=== PATIENT | female | born 1950 | race Caucasian/White ===

== ENCOUNTER → 2016-03-17 | Outpatient (CLI) | payer BC, MEDICARE ==
--- NOTE | 2016-03-17 09:22 | MR ---
EXAMINATION TYPE: MR cervical spine wo con DATE OF EXAM: 03/17/2016 8:36 AM COMPARISON: None HISTORY: 65-year-old female with cervical radiculopathy, neck and arm pain. TECHNIQUE: Multiplanar, multisequence images of the cervical spine were acquired. FINDINGS: No craniocervical junction abnormality, predental space widening, or prevertebral soft tissue swellin g. There is normal alignment of the cervical spine. There is a fatty matrix hemangioma within the C4 vertebral body. There is mild heterogeneity of marro w signal without suspicious bone marrow replacement. Moderate disc/endplate degenerative change with disc desiccation, disc space narrowing, and disc oste ophyte complex formation, especially from C5 through C7 levels. Multilevel ligamentum flavum thickeni ng is present as well as uncovertebral joint and facet degenerative change. At C2-C3, there is facet degenerative change without significant spinal canal or neuroforaminal steno sis. At C3-C4, there is facet degenerative change causing mild narrowing of the right neuroforamen. Disc o steophyte complex and ligamentum flavum thickening contribute to mild narrowing of the spinal canal w ithout significant cord abutment or cord flattening. At C4-C5, there is a broad-based right paracentral disc osteophyte complex with uncovertebral joint a nd facet degenerative change. Additional ligamentum flavum thickening. This causes mild narrowing of the spinal canal with slight abutment of the right ventral cord. At C5-C6, there is broad-based lobulated disc osteophyte complex with contiguous uncovertebral joint arthropathy. Additional facet degenerative change contributing to mild spinal canal stenosis with abu tment and slight flattening of the ventral cord. There is also mild to moderate left and mild right n euroforaminal stenosis. At C6/C7, there is broad-based left paracentral disc osteophyte complex with uncovertebral joint and facet degenerative change. This abuts and slightly flattens the ventral cord and causes a mild narrow ing of the spinal canal. No significant neuroforaminal stenosis. At C7/T1, there is ligamentum flavum thickening and facet degenerative change with minimal narrowing of the left neuroforamen. There is minimal impression on the thecal sac without significant spinal ca nal stenosis. No T2 cord signal abnormality. No prevertebral or paravertebral soft tissue abnormality seen. IMPRESSION: 1. Moderate disc/endplate degenerative change particularly from C5 through C7 levels along with multi level facet and uncovertebral joint arthropathy and ligamentum flavum thickening. 2. Changes result in mild spinal canal stenoses from C3 through C7 levels. At some levels, disc osteo phyte complex abuts and slightly flattens the ventral cord. However, there is no austin cord compressi on or canal compromise. 3. Variable mild neuroforaminal stenoses as outlined above, mild to moderate on the left at C5-C6.
== END | disposition home or self-care (01) ==
LOC: RADMRIMAIN 07:20
PROVIDERS: ATTEND Psychiatry & Neurology Neurology
DX: M48.02 Spinal stenosis, cervical region (principal); M99.71 Connective tissue and disc stenosis of intervertebral foramina of cervical region; M47.12 Other spondylosis with myelopathy, cervical region; M46.92 Unspecified inflammatory spondylopathy, cervical region
CPT/HCPCS: 72141

== ENCOUNTER 2017-06-08 07:56 | Day surgery (SDC) | payer BC ==
[2017-06-05 15:05] VITALS: BMI 27.4
[~2017-06-08 07:56] MED LIST: LACTATED RINGERS 1,000 ML IV SCH; LIDOCAINE 1% 20 ML VIAL (10MG/ML) FOR IV START INTRADERMA PRN; MIDAZOLAM 2 MG/2 ML VIAL IV PRN
[2017-06-08 09:10] VITALS: RESP 18; TEMP 98.5
[2017-06-08] MEDS ORDERED: PROPOFOL 10 MG/ML 20 ML VIAL IV ONE (09:32)
[2017-06-08] MEDS ORDERED: LIDOCAINE 1% INJ 10MG/ML (20 ML MDV) ONE (09:32)
[2017-06-08] MEDS ORDERED: IV FLUID CONTINUATION 500 ML IV ONE (10:08)
--- NOTE | 2017-06-08 10:09 | P.PCN ---
Date of Procedure: 06/08/17 Procedure(s) Performed: BRIEF HISTORY: Patient is a 67-year-old pleasant white female, scheduled for an elective colonoscopy as a part of screening for colorectal neoplasia. PROCEDURE PERFORMED: Colonoscopy and snare polypectomy. PREOPERATIVE DIAGNOSIS: Screening for colon cancer. IV sedation per Anesthesia. PROCEDURE: After informed consent was obtained, the patient, was brought into the endoscopy unit. IV sedation was administered by Anesthesia under continuous monitoring. Digital rectal examination was normal. Initially the Olympus CF- 160 flexible video colonoscope was then inserted in the rectum, gradually advanced into the cecum without any difficulty. Careful examination was performed as the scope was gradually being withdrawn. Ileocecal valve and the appendiceal orifice were visualized and appeared normal. Prep was excellent. Mucosa of the cecum appeared normal. In the ascending colon there was a 1 cm polyp that was removed by snare polypectomy. The rest of the ascending colon, transverse colon, descending colon, sigmoid colon, and rectum appeared normal. Retroflexion was performed in the rectum and no lesions were seen. The patient tolerated the procedure well. IMPRESSION: 1 cm ascending colon polyp status post polypectomy Rest of the colon appeared normal RECOMMENDATIONS: Findings of this examination were discussed with the patient as well as her family. She was advised to follow with the biopsy results. If the biopsy shows a tubular adenoma she can have a repeat colonoscopy in 3-5 years..
[2017-06-08] MEDS ORDERED: ONDANSETRON 4 MG/2 ML VIAL IVP ONE (10:12)
[2017-06-08 10:39] VITALS: BP 111/56; PULSE 66
== END 2017-06-08 11:19 | disposition home or self-care (01) ==
LOC: ORWHC2ENDO 07:56
PROVIDERS: ATTEND Internal Medicine Gastroenterology
DX: Z12.11 Encounter for screening for malignant neoplasm of colon (principal); D12.2 Benign neoplasm of ascending colon; I10 Essential (primary) hypertension; E78.5 Hyperlipidemia, unspecified; Z79.899 Other long term (current) drug therapy; Z88.2 Allergy status to sulfonamides
CPT/HCPCS: 88305; 45385; J2405; J2001; J2704

== ENCOUNTER 2017-08-10 09:26 | Day surgery (SDC) | payer BC ==
[2017-08-07 10:31] VITALS: BMI 27.4
[~2017-08-10 09:26] MED LIST changes: +DEXAMETHASONE SOD PHOSPHATE 10 MG/ML 1 ML VIAL IV ONE; +ONDANSETRON 4 MG/2 ML VIAL IVP ONE; +SCOPOLAMINE 1.5MG/72HR PATCH TRANSDERM ONE; +ceFAZolin IN SWFI 2 GM/20 ML SYRINGE IVP ONE
[2017-08-10] MEDS ORDERED: ePHEDrine SULFATE/0.9% NACL/PF 50 MG/5 ML SYRINGE IV ONE (11:06)
[2017-08-10] MEDS ORDERED: PROPOFOL 10 MG/ML 20 ML VIAL IV ONE (11:06)
[2017-08-10] MEDS ORDERED: fentaNYL (PF) 50 MCG/ML 2 ML AMP ONE (11:06)
[2017-08-10] MEDS ORDERED: LIDOCAINE 1% INJ 10MG/ML (20 ML MDV) ONE (11:06)
[2017-08-10] MEDS ORDERED: SUCCINYLCHOLINE CHLORIDE 100 MG/5 ML SYR IV ONE (11:06)
--- NOTE | 2017-08-10 12:15 | FL ---
EXAMINATION TYPE: FL guidance operating room DATE OF EXAM: 08/10/2017 HISTORY: Flouroscopy time 11 seconds of fluoroscopy provided. IMPRESSION: 1. Fluoroscopy time.
--- NOTE | 2017-08-10 12:18 | XR ---
EXAMINATION TYPE: XR ankle complete LT DATE OF EXAM: 08/10/2017 COMPARISON: NONE HISTORY: Postop TECHNIQUE: 3 views are submitted. FINDINGS: Postsurgical change involving the fibula is in near anatomic alignment. IMPRESSION: Postsurgical changes
--- NOTE | 2017-08-10 12:27 | P.OP ---
Date of Procedure: 08/10/17 Preoperative Diagnosis: 1. Closed left bimalleolar equivalent ankle fracture Postoperative Diagnosis: Same Procedure(s) Performed: 1. Open reduction and internal fixation of left lateral malleolus 2. Manual application of joint stress for radiography by physician, left ankle 3. Apposition of short leg splint by physician, left ankle Anesthesia: BERNADINE Surgeon: Andres Castellanos Dietitian Teacher #1: Glen Mclean Estimated Blood Loss (ml): 5 IV fluids (ml): 350 Pathology: none sent Condition: stable Disposition: PACU Indications for Procedure: The patient is a 67-year-old female who sustained a low-energy fall resulting in an isolated lateral malleolus fracture. She had x-rays taken at her primary care physician and was referred to our office for further treatment. Her x- rays showed a displaced lateral malleolus fracture with widening of the medial clear space. We discussed nonoperative and operative treatment. Due to the displacement of the fibula fracture and widening of the medial clear space I recommended operative fixation. We discussed potential risks and complications of surgery including but not limited to risk of anesthesia, risk of superficial infection, risk of deep infection, risk of delayed wound healing, risk of superficial wound necrosis, risk of fracture nonunion, risk of fracture nonunion , risk of symptomatically hardware, risk of postoperative displacement, risk of posterior medical ankle arthritis, risk of hardware failure, risk of DVT, risk of PE, risk of other medical complications, risk of need for further surgery, inability to regain preinjury level of function, and possibly loss of life or limb. The patient voiced understanding of this and provided her verbal and written consent to go forward with surgery. Description of Procedure: Patient was identified in Holding and the correct left ankle was marked with my initials. The consent form with the patient and her family and all their questions were answered. The patient had a popliteal nerve block placed by anesthesia. She was then brought back to the operating room. She was positioned on the OR table and a general anesthetic and preoperative antibiotics were administered. A tourniquet was applied to the proximal aspect the left thigh. A ramp was placed under the left leg elevating it to facilitate imaging. A bump was placed under the left buttock internally rotating the leg. All other bony prominences were well-padded. Prior to prepping the patient out a manual external rotation stress x-ray of the ankle was performed. There was widening of the medial clear space and displacement of the lateral malleolus. I interpreted this is an unstable injury requiring surgical fixation. The left leg was then prepped and draped in the standard sterile fashion. Prior to surgery a timeout was performed identifying the correct patient, operative extremity, procedure. The patient's leg was then elevated, exsanguinated with an Esmarch bandage, and the tourniquet was inflated to 250 mmHg. I began by outlining a longitudinal incision over the lateral malleolus. Skin incision was made a scalpel. Dissection was carried down carefully to the subcutaneous tissue with tenotomy scissors. The periosteum and fascia over the fibula was incised longitudinally in line with the skin incision. The fracture was then carefully debrided of early consolidating hematoma and callus. Once the fracture margins were cleaned a gentle reduction was performed and held with a [id number] reduction clamp. Fluoroscopy was used to verify reduction of the fracture. I then placed a 5 hole one third tubular plate over the posterior lateral aspect of the fibula to use as an anti-glide construct. A 3.5 mm screws placed in the third hole of the plate just proximal to the fracture. A second 3.5 mm screw was placed in the most proximal hole of the plate. I then placed a third 3.5 mm screw in the most distal hole of the plate. I then placed a 2.7 mm lag screw to the fourth hold the plate using a 2.7 mm drill bit to create a gliding hole in the posterior cortex the distal fragment and a 2.0 mm drill bit to create a threaded hole in the anterior cortex of the shaft. A fully threaded 2.7 mm lag screw was then placed. Final fluoroscopic images were taken including a mortise view and true lateral. A second manual external rotation stress x-ray was performed and there was no widening of the medial clear space. I interpreted this as a stable ankle not requiring syndesmotic screw. The wound was then copiously irrigated and closed in layers with 0 Vicryl for the fascia, 2-0 Vicryl for the subcu, and 3-0 nylon horizontal mattress stitches for the skin. The tourniquet was let down for total tourniquet time of 21 minutes. A sterile dressing consisting of Betadine soaked Adaptic, 4 x 4, and web roll was applied. The drapes were taken down and a well-padded splint with the ankle in neutral was placed. The patient was then awoken from her anesthetic, transferred to a gurney, and brought to PACU without procedure well. Glen Mclean PA-C was required a skilled assistant terminal manager for patient positioning surgical exposure, fracture reduction, placement of hardware, closure of wound, and application of splint. Plan: The patient is going to be strictly nonweightbearing on her left leg. She will work with physical therapy this afternoon and if she is safe to discharge home will be discharged. If she needs admission for placement to rehab she will be admitted.
[2017-08-10 12:38] VITALS: RESP 20; TEMP 98
[2017-08-10] MEDS: HYDROmorphone 0.5 MG/0.5 ML SYRINGE IVP PRN ×2 (12:57→13:40)
[2017-08-10 15:40] VITALS: BP 122/76; PULSE 68
--- NOTE | 2017-08-13 10:35 | P.ONQ ---
Anesthesiology Proc Note - PNB - Peripheral Nerve Block Performed Left Popliteal Single Time Out Performed: Yes Procedure Start Time: : Procedure Stop Time: :30 Indication: Acute Post-Operative Pain, Requested by physician Sedation Type: Sedate with meaningful contact maintained Preparation: Sterile Prep Needle Size: 50mm (2") Needle Gauge: 21 Technique: Ultrasound Injectate: 0.5% Ropivacaine (see comment for volume) (ropi .5% 30cc) Blood Aspirated: No Pain Paresthesia on Injection Noted: No Resistance on Injection: Normal Events: Uneventful and Well Tolerated
== END 2017-08-10 16:17 | disposition home or self-care (01) ==
LOC: OR 09:26
PROVIDERS: ATTEND Orthopaedic Surgery
DX: S82.62XA Displaced fracture of lateral malleolus of left fibula, initial encounter for closed fracture (principal); W10.9XXA Fall (on) (from) unspecified stairs and steps, initial encounter; D33.3 Benign neoplasm of cranial nerves; F32.9 Major depressive disorder, single episode, unspecified; I10 Essential (primary) hypertension; E66.9 Obesity, unspecified; Z68.27 Body mass index [BMI] 27.0-27.9, adult; F41.9 Anxiety disorder, unspecified; J06.9 Acute upper respiratory infection, unspecified; J32.9 Chronic sinusitis, unspecified; N95.1 Menopausal and female climacteric states; R23.2 Flushing; E78.5 Hyperlipidemia, unspecified; Z79.899 Other long term (current) drug therapy; Z88.2 Allergy status to sulfonamides
CPT/HCPCS: 73610; 27792; 77071; 64450; C1713; J2250; J1100; J2405; J2001; J3010; J0330; J2704; J1170; J0690

== ENCOUNTER → 2019-03-14 | Outpatient (CLI) | payer BC, MEDICARE ==
--- NOTE | 2019-03-14 11:49 | MR ---
EXAMINATION TYPE: MR brain wo/w con DATE OF EXAM: 03/14/2019 COMPARISON: None HISTORY: Hyperreflexia,falling, memory difficulties and left-sided hearing loss TECHNIQUE: Multiplanar, multisequence images of the brain and brainstem, cerebellopontine angles is performed wi thout and with IV contrast, utilizing 7.5 mL intravenous Gadavist . Small [id number], high-resolut ion images obtained through the internal auditory canals FINDINGS: Diffusion weighted images demonstrate no evidence of a recent infarct or other diffusion ab normality. There is no extra-axial fluid collection. Minimal scattered hyperintensities in the chago ventricular white matter, focus in the subcortical white matter on axial image 22 and inversion recov felecia T2-weighted sequences measures 9 mm. The ventricular system and cisternal spaces are normal in si ze and appearance. The brain volume is age appropriate, there is cortical atrophy. There is abnormal signal involving the temporal bone on the left, deformity consistent with prior surgery. The interna l auditory canal is ectatic compatible with postop change, asymmetric appearance to the internal idania tory canals, single cranial nerve noted extending towards the internal auditory canal, semicircular c anals, cochlea are not seen on the left. There is no evident abnormal enhancement, no mass. Midline structures demonstrate normal morphology. The craniocervical junction appears within normal limits. Post contrast images demonstrate no abnormal enhancement. The dural venous sinuses appear pa tent. The visualized sinuses are remarkable for polyp or mucosal disease within the left maxillary si nus and the globes are intact. IMPRESSION: Postop changes, correlate with appropriate surgical history. Nonspecific white matter dem yelination of questionable clinical significance, findings could be due to age-related atrophy and ch ronic small vessel ischemia. Additional findings above.
== END | disposition home or self-care (01) ==
LOC: RADMRIMAIN 09:46
PROVIDERS: ATTEND Family Medicine
DX: G37.9 Demyelinating disease of central nervous system, unspecified (principal); R29.2 Abnormal reflex; Z98.890 Other specified postprocedural states
CPT/HCPCS: 70553; A9585

== ENCOUNTER → 2019-04-19 | Outpatient (CLI) | payer BC ==
--- NOTE | 2019-04-21 12:26 | MR ---
MRI CERVICAL AND THORACIC SPINE SPINE: CLINICAL HISTORY: Myelopathy of the cervical spine, neck and back pain TECHNIQUE: Multiplanar, multisequence imaging of the cervical spine and thoracic spine is performed w ithout intravenous contrast. COMPARISON: MRI of the cervical spine dated 03/17/2016 FINDINGS: Cervical spine: The cervical spine vertebral bodies maintain normal vertebral body heights period there is a very min imal new grade 1 anterolisthesis of C4 on C5 of 1 to 2 mm, likely on a degenerative basis. Cervical s chacorta cord signal is overall unremarkable. C2-C3: There is facet arthropathy resulting in mild right neural foraminal narrowing. Left neural for amen and spinal canal are patent. Disc desiccation is seen without focal herniation. C3-C4: Ligamentum flavum buckling and facet arthropathy are again seen with new small central disc he rniation. There is again very minimal right neural foraminal narrowing. Left neural foramen and spina l canal are patent. C4-C5: Broad-based right paracentral disc osteophyte complex is redemonstrated with ligamentum flavum buckling resulting in mild spinal canal stenosis is seen on the prior. No significant neural foramin al narrowing. C5-C6: There is a broad-based disc osteophyte complex and disc bulge with uncovertebral hypertrophy a nd facet arthropathy creating mild bilateral neural foraminal narrowing (left slightly greater than r ight) and mild spinal canal stenosis is seen on the prior. C6-C7: There is a broad-based disc bulge, uncovertebral hypertrophy and facet arthropathy creating mi ld spinal canal stenosis is seen on the prior with minimal right neural foraminal narrowing. Left marcos ral foramen is patent. C7-T1: There is facet arthropathy that is minimal without spinal canal stenosis. Minimal neural marciano inal narrowing on the left as seen on the prior. Right neuroforamen is patent. Disc desiccation is se en. Thoracic spine: At the left lateral margin of the posterior T11 vertebral body there is a 1.0 cm T1 hypointense and T 2 hypointense lesion seen. At the T12 level there is a 3 mm T1 hypointense and T2 hypointense lesion. Remainder of the thoracic vertebral body bone marrow signal is unremarkable. Thoracic spinal cord si gnal is also unremarkable. Visualized portions of the lungs are limited by patient motion. There is a broad-based disc bulge at T2-T3 without spinal canal stenosis or neural foraminal narrowin g. There is a very small central disc herniation at T6-T7 without spinal canal stenosis or neural forami nal narrowing. At T12-L1 there is a broad-based disc bulge and facet arthropathy without spinal canal stenosis nor n eural foraminal narrowing. Multilevel disc desiccation is seen throughout the thoracic spine without additional area of disc her niation, neural foraminal narrowing or spinal canal. IMPRESSION: 1. Indeterminate 1.0 cm T11 vertebral body lesion. Contrast enhanced T1-weighted MR sequences are rec ommended to evaluate for enhancement and potential neoplasm. Bone scan could also be considered. 2. New small central disc herniation at C3-C4. No spinal canal stenosis. 3. Multilevel mild spinal canal stenosis throughout the cervical spine is unchanged from the prior of 2017. 4. Very small central disc herniation at T6-T7 without spinal canal stenosis. 5. Moderate multilevel degenerative disc disease of the cervical spine and mild of the thoracic spine creating variable degrees of neural foraminal narrowing detailed age level above.
== END | disposition home or self-care (01) ==
LOC: RADMRIMAIN 10:10
PROVIDERS: ATTEND Psychiatry & Neurology Neurology
DX: M48.02 Spinal stenosis, cervical region (principal); M50.01 Cervical disc disorder with myelopathy, high cervical region; M50.020 Cervical disc disorder with myelopathy, mid-cervical region, unspecified level; M51.04 Intervertebral disc disorders with myelopathy, thoracic region
CPT/HCPCS: 72141; 72146

== ENCOUNTER 2019-05-25 02:25 | Observation (INO) | payer BC, MEDICARE ==
[2019-05-25 03:21] LABS: INR 0.9 (<1.2); Prothrombin Time 9.5 sec (9.0-12.0)
[2019-05-25 03:22] LABS: Basophils % (A) 0 %; Eosinophils # (A) 0.2 k/uL (0-0.7); Eosinophils % (A) 3 %; HCT 36.5 % (34.0-46.0); HGB 12.3 gm/dL (11.4-16.0); Lymphocytes # (A) 2.9 k/uL (1.0-4.8); Lymphocytes % (A) 41 %; MCH 30.5 pg (25.0-35.0); MCHC 33.5 g/dL (31.0-37.0); Mean Platelet Volume 7.2; Monocytes # (A) 0.4 k/uL (0-1.0); Monocytes % (A) 6 %; Neutrophils # (A) 3.3 k/uL (1.3-7.7); Neutrophils % (A) 48 %; Platelet Count 288 k/uL (150-450); RBC 4.01 m/uL (3.80-5.40); RDW 13.1 % (11.5-15.5); WBC 6.9 k/uL (3.8-10.6)
--- NOTE | 2019-05-25 03:23 | XR ---
EXAMINATION TYPE: XR chest 2V DATE OF EXAM: 05/25/2019 COMPARISON: NONE HISTORY: Vertebra TECHNIQUE: 2 views FINDINGS: Heart and mediastinum are normal. Lungs are clear. Diaphragm is normal. Bony thorax appears normal. There are chest leads. IMPRESSION: Normal chest.
[2019-05-25 03:28] LABS: African American GFR (CKD) >90 (>60 ml/min/1.73 sqM); Albumin 4.4 g/dL (3.5-5.0); Carbon Dioxide 27 mmol/L (22-30); Non-African American GFR(CKD) >90 (>60 ml/min/1.73 sqM); Total Bilirubin 0.5 mg/dL (0.2-1.3); Total Protein 7.1 g/dL (6.3-8.2)
[2019-05-25 03:29] LABS: AST 30 U/L (14-36); Alkaline Phosphatase 93 U/L (38-126); Anion Gap 7 mmol/L; Blood Urea Nitrogen 15 mg/dL (7-17); Calcium 9.7 mg/dL (8.4-10.2); Chloride 103 mmol/L (98-107); Glucose 113 mg/dL (74-99); Phosphorus 4.4 mg/dL (2.5-4.5); Potassium 4.1 mmol/L (3.5-5.1); Sodium 137 mmol/L (137-145)
[2019-05-25 03:30] LABS: ALT 27 U/L (4-34); Magnesium 1.9 mg/dL (1.6-2.3); Partial Thromboplastin Time 22.2 sec (22.0-30.0)
--- NOTE | 2019-05-25 03:39 | ED ---
SOB HPI - General Chief Complaint: Shortness of Breath Stated Complaint: SOB Time Seen by Provider: 05/25/19 02:34 Source: patient, family, RN notes reviewed, old records reviewed Mode of arrival: wheelchair Limitations: no limitations - History of Present Illness Initial Comments: Is a 69-year-old female she presents today for evaluation of some anxiety shortness of breath cough or congestion no fevers but she's been exposed to her she believes and family believes had CO VID. Patient also having chest pain left-sided chest pain and anxiety now. Mild nausea no vomiting history of heart disease. History of high blood pressure. Patient's chest pain is remaining here in the emergency MD Complaint: shortness of breath, cough -: hour(s) Severity: mild Severity scale (1-10): 2 Quality: aching Consistency: constant Improves With: nothing, oxygen Worsens With: nothing Context: recent URI Associated Symptoms: chest pain, pain with inspiration Treatments Prior to Arrival: none - Related Data Home Medications Medication Instructions Recorded Confirmed Atorvastatin Calcium [Lipitor] 80 mg PO HS 06/05/17 08/10/17 LORazepam [Ativan] 1 mg PO BID 06/05/17 08/10/17 Metoprolol Tartrate [Lopressor] 100 mg PO DAILY 06/05/17 08/10/17 Sertraline [Zoloft] 100 mg PO HS 06/05/17 08/10/17 amLODIPine [Norvasc] 5 mg PO HS 06/05/17 08/10/17 Ibuprofen [Advil] 400 mg PO Q8HR PRN 08/07/17 08/10/17 Ubidecarenone [Co Q-10] 100 mg PO DAILY 08/07/17 08/10/17 Previous Rx's Medication Instructions Recorded Aspirin 325 mg PO BID #60 tab 08/10/17 Docusate [Colace] 100 mg PO BID #60 capsule 08/10/17 HYDROcodone/APAP 5-325MG [Weld 1 tab PO Q4HR PRN #60 tab 08/10/17 5-325] Allergies Allergy/AdvReac Type Severity Reaction Status Date / Time Sulfa (Sulfonamide Allergy Rash/Hives Verified 05/25/19 02:42 Antibiotics) Review of Systems ROS Statement: Those systems with pertinent positive or pertinent negative responses have been documented in the HPI. ROS Other: All systems not noted in ROS Statement are negative. Past Medical History Past Medical History: Hyperlipidemia, Hypertension Additional Past Medical History / Comment(s): VARICOSE VEINS, STATES BM ONCE A WEEK AND PAINFUL SINCE COLONOSCOPY WITH POLYP REMOVAL 06/08/17., SCOLIOSIS, FELL ON STAIRS AND INJURED LEFT ANKLE-HAS SPLINT ON., BRUISES ON ARMS AND SCRAPED RIGHT SMITH ALSO. 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 COLONOSCOPY Past Anesthesia/Blood Transfusion Reactions: No Reported Reaction Past Psychological History: Anxiety, Depression Smoking Status: Never smoker Past Alcohol Use History: None Reported Past Drug Use History: None Reported - Past Family History Mother Family Medical History: Cancer Additional Family Medical History / Comment(s): BREAST CANCER General Exam Limitations: no limitations General appearance: alert, in no apparent distress, anxious Head exam: Present: atraumatic, normocephalic, normal inspection Eye exam: Present: normal appearance, PERRL, EOMI. Absent: scleral icterus, conjunctival injection, periorbital swelling ENT exam: Present: normal exam, mucous membranes moist Neck exam: Present: normal inspection. Absent: tenderness, meningismus, lymphadenopathy Respiratory exam: Present: normal lung sounds bilaterally. Absent: respiratory distress, wheezes, rales, rhonchi, stridor Cardiovascular Exam: Present: regular rate, normal rhythm, normal heart sounds. Absent: systolic murmur, diastolic murmur, rubs, gallop, clicks GI/Abdominal exam: Present: soft, normal bowel sounds. Absent: distended, tenderness, guarding, rebound, rigid Extremities exam: Present: normal inspection, full ROM, normal capillary refill. Absent: tenderness, pedal edema, joint swelling, calf tenderness Back exam: Present: normal inspection Neurological exam: Present: alert, oriented X3, CN II-XII intact Psychiatric exam: Present: normal affect, normal mood Skin exam: Present: warm, dry, intact, normal color. Absent: rash Course Vital Signs 05/25/19 02:39 Temperature 98.3 F Pulse Rate 84 Respiratory 18 Rate Blood Pressure 169/83 O2 Sat by Pulse 97 Oximetry - Reevaluation(s) Reevaluation #1: 05/25/19 04:14 Medical records reviewed Reevaluation #2: 05/25/19 04:14 Patient does believe that she has been exposed to COVID: Reevaluation #3: 05/25/19 04:16 Patient has continued chest pain here in the ER - Consultations Consultation #1: Spoke with Dr. Ravi was agreeable for admission Medical Decision Making - Medical Decision Making 69 female DF for evaluation patient does have some underlying anxiety also confounded by chest pain currently. Patient also no signs and symptoms of COPD which she states her had fever cough congestion sore throat. Patient will admit for cardiac observation - Lab Data Result diagrams: 05/25/19 02:45 05/25/19 02:45 Lab Results 05/25/19 05/25/19 05/25/19 Range/Units 02:45 02:45 02:45 WBC 6.9 (3.8-10.6) k/uL RBC 4.01 (3.80-5.40) m/uL Hgb 12.3 (11.4-16.0) gm/dL Hct 36.5 (34.0-46.0) % MCV 91.0 (80.0-100.0) fL MCH 30.5 (25.0-35.0) pg MCHC 33.5 (31.0-37.0) g/dL RDW 13.1 (11.5-15.5) % Plt Count 288 (150-450) k/uL Neutrophils % 48 % Lymphocytes % 41 % Monocytes % 6 % Eosinophils % 3 % Basophils % 0 % Neutrophils # 3.3 (1.3-7.7) k/uL Lymphocytes # 2.9 (1.0-4.8) k/uL Monocytes # 0.4 (0-1.0) k/uL Eosinophils # 0.2 (0-0.7) k/uL Basophils # 0.0 (0-0.2) k/uL PT 9.5 (9.0-12.0) sec INR 0.9 (<1.2) APTT 22.2 (22.0-30.0) sec Sodium 137 (137-145) mmol/L Potassium 4.1 (3.5-5.1) mmol/L Chloride 103 (98-107) mmol/L Carbon Dioxide 27 (22-30) mmol/L Anion Gap 7 mmol/L BUN 15 (7-17) mg/dL Creatinine 0.60 (0.52-1.04) mg/dL Est GFR (CKD-EPI)AfAm >90 (>60 ml/min/1.73 sqM) Est GFR (CKD-EPI)NonAf >90 (>60 ml/min/1.73 sqM) Glucose 113 H (74-99) mg/dL Calcium 9.7 (8.4-10.2) mg/dL Phosphorus 4.4 (2.5-4.5) mg/dL Magnesium 1.9 (1.6-2.3) mg/dL Total Bilirubin 0.5 (0.2-1.3) mg/dL AST 30 (14-36) U/L ALT 27 (4-34) U/L Alkaline Phosphatase 93 (38-126) U/L Troponin I (0.000-0.034) ng/mL NT-Pro-B Natriuret Pep pg/mL Total Protein 7.1 (6.3-8.2) g/dL Albumin 4.4 (3.5-5.0) g/dL 05/25/19 05/25/19 Range/Units 02:45 02:45 WBC (3.8-10.6) k/uL RBC (3.80-5.40) m/uL Hgb (11.4-16.0) gm/dL Hct (34.0-46.0) % MCV (80.0-100.0) fL MCH (25.0-35.0) pg MCHC (31.0-37.0) g/dL RDW (11.5-15.5) % Plt Count (150-450) k/uL Neutrophils % % Lymphocytes % % Monocytes % % Eosinophils % % Basophils % % Neutrophils # (1.3-7.7) k/uL Lymphocytes # (1.0-4.8) k/uL Monocytes # (0-1.0) k/uL Eosinophils # (0-0.7) k/uL Basophils # (0-0.2) k/uL PT (9.0-12.0) sec INR (<1.2) APTT (22.0-30.0) sec Sodium (137-145) mmol/L Potassium (3.5-5.1) mmol/L Chloride (98-107) mmol/L Carbon Dioxide (22-30) mmol/L Anion Gap mmol/L BUN (7-17) mg/dL Creatinine (0.52-1.04) mg/dL Est GFR (CKD-EPI)AfAm (>60 ml/min/1.73 sqM) Est GFR (CKD-EPI)NonAf (>60 ml/min/1.73 sqM) Glucose (74-99) mg/dL Calcium (8.4-10.2) mg/dL Phosphorus (2.5-4.5) mg/dL Magnesium (1.6-2.3) mg/dL Total Bilirubin (0.2-1.3) mg/dL AST (14-36) U/L ALT (4-34) U/L Alkaline Phosphatase (38-126) U/L Troponin I <0.012 (0.000-0.034) ng/mL NT-Pro-B Natriuret Pep 109 pg/mL Total Protein (6.3-8.2) g/dL Albumin (3.5-5.0) g/dL - EKG Data -: EKG Interpreted by Me (EKG shows sinus rhythm 74, MT 180, QRS 70, QTc 437) - Radiology Data Radiology results: report reviewed (Chest x-ray is negative for acute disease), image reviewed Disposition Clinical Impression: Chest pain Disposition: ADMITTED IP TO THIS HOSP Condition: Fair Is patient prescribed a controlled substance at d/c from ED?: No Referrals: Og Avina DO [Primary Care Provider] - 1-2 days
[2019-05-25] MEDS ORDERED: NITROGLYCERIN SL TABS 0.4 MG TAB SUBLINGUAL PRN (04:09)
[2019-05-25] MEDS ORDERED: ASPIRIN 81 MG PO STA (04:09)
[2019-05-25 06:55] LABS: C Reactive Protein <5.0 mg/L (<10.0); LDH 455 U/L (313-618); Magnesium 1.9 mg/dL (1.6-2.3)
[2019-05-25] MEDS ORDERED: IBUPROFEN 400 MG TAB PO PRN (09:00)
[2019-05-25] MEDS: METOPROLOL TARTRATE 50 MG TAB PO SCH (09:31)
[2019-05-25] MEDS: LORazepam 1 MG TAB PO SCH (09:31)
[2019-05-25] MEDS ORDERED: REGADENOSON 0.4 MG/5 ML SYRINGE IV ONE (10:55)
--- NOTE | 2019-05-25 12:39 | P.CRDCN ---
History of Present Illness Consult date: 05/25/19 History of present illness: History of present illness: This is a 69-year-old female with past medical history of hypertension, hyperlipidemia, anxiety and depression. Patient complains of headache that started yesterday along with sore throat anxiety. She complains that she is having a lot of stress. She complains of cough that is dry. She complains of bones aching in her shoulders back and neck. Patient also has upper anterior chest pain with shortness of breath. She denies having any fever. She states she has had some nausea. Patient came into [facility] emergency center for evaluation. Initial blood pressure 169/83, heart rate 84, afebrile, pulse ox 97% on room air. CBC and CMP unremarkable except for blood glucose of 113, CRP 58.7, COVID-19 testing negative. Troponin negative on 2 draws. Chest x-ray shows normal findings. EKG is a sinus rhythm. Patient was placed on the cardiac stepdown unit as observation. Patient's main concern and complaint at this time is unrelenting headache that started yesterday feels like her head is going to explode. Review Of Systems: Constitutional: No fever, no chills, no night sweats. No weight change. No weakness, fatigue or lethargy. No daytime sleepiness. EENT: Reports headache. No blurred vision or double vision, no loss of vision. No loss of Hearing, no ringing in the ears, no dizziness. No nasal drainage or congestion. No epistaxis. Reports sore throat. Denies photophobia. Denies photophobia. Lungs: Reports shortness of breath, reports cough, no sputum production. No wheezing. Cardiovascular: Reports chest pain, no lower extremity edema. No palpitations. No paroxysmal nocturnal dyspnea. No orthopnea. No lightheadedness or dizziness. No syncopal episodes. Abdominal: No abdominal pain. No nausea, vomiting. No diarrhea. No constipation. No bloody or tarry stools.. No loss of appetite. Genitourinary: No dysuria, increased frequency, urgency. No urinary retention. Musculoskeletal: No myalgias. No muscle weakness, no gait dysfunction, no frequent falls. No back pain. No neck pain. Integumentary: No wounds, no lesions. No rash or pruritus. No unusual bruising. No change in hair or nails. Neurologic: No aphasia. No facial droop. No change in mentation. No head injury. No headache. No paralysis. No paresthesia. Psychiatric: No depression. Reports anxiety. No mood swings. Endocrine: No abnormal blood sugars. No weight change. No excessive sweating or thirst. No cold intolerance. No weight change. Physical examination: Gen: This is a 69-year-old female. Patient is resting in bed but appears to be quite uncomfortable secondary to headache. Ice packs in place to the back of her head. VS: Afebrile, heart rate 62, blood pressure 131/61, pulse ox 100% on room air. HEENT: Head is atraumatic, normocephalic. Pupils equal, round. Sclerae is anicteric. NECK: Supple. No JVD. No lymphadenopathy. No thyromegaly. LUNGS: Clear to auscultation. No wheezes or rhonchi. No intercostal retractions. HEART: Regular rate and rhythm. No murmur. ABDOMEN: Soft. Bowel sounds are present. No masses. No tenderness. EXTREMITIES: No pedal edema. No calf tenderness. NEUROLOGICAL: Patient is awake, alert and oriented x3. Cranial nerves 2 through 12 are grossly intact. Assessment: Chest pain with negative troponins Headache Upper respiratory symptoms Generalized anxiety disorder Hypertension Hyperlipidemia Plan: Continue amlodipine 5 mg at bedtime, Lopressor 100 mg daily, Lipitor 80 mg at bedtime Schedule patient for Persantine stress test for Sunday Obtain 2-D echocardiogram and Doppler study to assess cardiac structure and function. Change aspirin to 81 mg daily. Further recommendations to follow based upon clinical course. Thank you kindly for this consultation. Nurse practitioner note has been reviewed, I agree with documented findings and plan of care. Patient was seen and examined. Past Medical History Past Medical History: Hyperlipidemia, Hypertension Additional Past Medical History / Comment(s): VARICOSE VEINS, STATES BM ONCE A WEEK AND PAINFUL SINCE COLONOSCOPY WITH POLYP REMOVAL 06/08/17., SCOLIOSIS, FELL ON STAIRS AND INJURED LEFT ANKLE-HAS SPLINT ON., BRUISES ON ARMS AND SCRAPED RIGHT SMITH ALSO. 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 COLONOSCOPY Past Anesthesia/Blood Transfusion Reactions: No Reported Reaction Past Psychological History: Anxiety, Depression Smoking Status: Never smoker Past Alcohol Use History: None Reported Past Drug Use History: None Reported - Past Family History Mother Family Medical History: Cancer Additional Family Medical History / Comment(s): BREAST CANCER Medications and Allergies Home Medications Medication Instructions Recorded Confirmed Type Atorvastatin Calcium [Lipitor] 80 mg PO HS 06/05/17 05/25/19 History LORazepam [Ativan] 1 mg PO BID 06/05/17 05/25/19 History Metoprolol Tartrate [Lopressor] 100 mg PO BID 06/05/17 05/25/19 History Sertraline [Zoloft] 100 mg PO HS 06/05/17 05/25/19 History amLODIPine [Norvasc] 5 mg PO HS 06/05/17 05/25/19 History Ibuprofen [Advil] 400 mg PO Q8HR PRN 08/07/17 05/25/19 History Allergies Allergy/AdvReac Type Severity Reaction Status Date / Time Sulfa (Sulfonamide Allergy Rash/Hives Verified 05/25/19 09:15 Antibiotics) Physical Exam Vitals: Vital Signs Temp Pulse Pulse Resp BP BP Pulse Ox 05/25/19 05:09 98.2 F 74 18 131/69 97 05/25/19 04:36 98.6 F 82 18 164/63 95 05/25/19 02:39 98.3 F 84 18 169/83 97 Intake and Output 05/24/19 05/25/19 05/25/19 22:59 06:59 14:59 Other: Weight 67 kg Results 05/25/19 02:45 05/25/19 02:45 Cardiac Enzymes 05/25/19 05/25/19 05/25/19 Range/Units 02:45 02:45 02:45 AST 30 (14-36) U/L Lactate Dehydrogenase 455 (313-618) U/L Troponin I <0.012 (0.000-0.034) ng/mL Coagulation 05/25/19 Range/Units 02:45 PT 9.5 (9.0-12.0) sec APTT 22.2 (22.0-30.0) sec CBC 05/25/19 Range/Units 02:45 WBC 6.9 (3.8-10.6) k/uL RBC 4.01 (3.80-5.40) m/uL Hgb 12.3 (11.4-16.0) gm/dL Hct 36.5 (34.0-46.0) % Plt Count 288 (150-450) k/uL Comprehensive Metabolic Panel 05/25/19 Range/Units 02:45 Sodium 137 (137-145) mmol/L Potassium 4.1 (3.5-5.1) mmol/L Chloride 103 (98-107) mmol/L Carbon Dioxide 27 (22-30) mmol/L BUN 15 (7-17) mg/dL Creatinine 0.60 (0.52-1.04) mg/dL Glucose 113 H (74-99) mg/dL Calcium 9.7 (8.4-10.2) mg/dL AST 30 (14-36) U/L ALT 27 (4-34) U/L Alkaline Phosphatase 93 (38-126) U/L Total Protein 7.1 (6.3-8.2) g/dL Albumin 4.4 (3.5-5.0) g/dL Current Medications Generic Name Dose Route Start Last Admin Trade Name Freq PRN Reason Stop Dose Admin Aspirin 325 mg 05/26/19 09:00 Aspirin PO DAILY OMKAR Nitroglycerin 0.4 mg 05/25/19 04:09 Nitrostat SUBLINGUAL Q5M PRN Chest Pain Intake and Output 05/24/19 05/25/19 05/25/19 22:59 06:59 14:59 Other: Weight 67 kg 05/25/19 02:45 05/25/19 02:45
[2019-05-25] MEDS: ENOXAPARIN 40 MG/0.4 ML SYRINGE SQ SCH (13:08)
--- NOTE | 2019-05-25 16:28 | P.HPIM ---
History of Present Illness H&P Date: 05/25/19 Chief Complaint: Chest pain History of presenting complaint: This is a pleasant 69-year-old patient of Dr. Avina. Chronic stable medical conditions include hypertension, hyperlipidemia, varicose veins, scoliosis, anxiety depression. Patient presented with pain across the chest feeling a somebody's pushing a setting of the chest last from Brady hour. Did not radiate to neck or arm. The patient felt some tingling injured in both the arms and there was free shaking in the legs. Some shortness of breath some perspiration. Admitted with unstable angina. Troponin was negative. Cardiology was consulted. No prior cardiac history. Review of systems: GEN.: None EYES: None HEENT: None NECK: None RESPIRATORY: None CARDIOVASCULAR: As above GASTROINTESTINAL: None GENITOURINARY: None MUSCULOSKELETAL: None LYMPHATICS: None HEMATOLOGICAL: None PSYCHIATRY: None NEUROLOGICAL: None Past medical history to include: Hyperlipidemia, hypertension, varicose veins, scoliosis, anxiety depression, Social history: . Does not smoke or drink alcohol. Physical examination: VITAL SIGNS: BMI 98.3, 84, 18, 169/83, 97% on room air GENERAL: BMI 27.9, sitting up, comfortable. EYES: Pupils equal. Conjunctiva normal. HEENT: External appearance of nose and ears normal, oral cavity grossly normal. NECK: JVD not raised; masses not palpable. HEART: First and second heart sounds are normal; no edema. LUNGS: Respiratory rate normal; clear to auscultation. ABDOMEN: Soft, nontender, liver spleen not palpable, no masses palpable. PSYCH: Alert and oriented x3; mood and affect normal. NEUROLOGICAL: Cranial nerves grossly intact; no facial asymmetry, power and sensation grossly intact. LYMPHATICS: No lymph nodes palpable in the axilla and neck INVESTIGATIONS, reviewed in the clinical context: White count 6.9 hemoglobin 12.3 platelets 288, potassium 4.1 creatinine 0.60 Troponin I 1 negative Coronavirus PCR-undetected EKG tracing personally reviewed by me-sinus rhythm with nonspecific ST segment changes Chest x-ray film personally reviewed by me-lung vegrara clear Assessment: -Possible unstable angina and the patient's risk factors include hypertension, hyperlipidemia and her age. -Hyperlipidemia -Essential hypertension -Varicose -chronic scoliosis -Anxiety depression otherwise specified Plan: Patient is on aspirin Lopressor. Seen by cardiology. Being scheduled for a stress test tomorrow. Care was discussed with the patient. Past Medical History Past Medical History: Hyperlipidemia, Hypertension Additional Past Medical History / Comment(s): VARICOSE VEINS, STATES BM ONCE A WEEK AND PAINFUL SINCE COLONOSCOPY WITH POLYP REMOVAL 06/08/17., SCOLIOSIS, FELL ON STAIRS AND INJURED LEFT ANKLE-HAS SPLINT ON., BRUISES ON ARMS AND SCRAPED RIGHT SMITH ALSO. 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 COLONOSCOPY Past Anesthesia/Blood Transfusion Reactions: No Reported Reaction Past Psychological History: Anxiety, Depression Smoking Status: Never smoker Past Alcohol Use History: None Reported Past Drug Use History: None Reported - Past Family History Mother Family Medical History: Cancer Additional Family Medical History / Comment(s): BREAST CANCER Medications and Allergies Home Medications Medication Instructions Recorded Confirmed Type Atorvastatin Calcium [Lipitor] 80 mg PO HS 06/05/17 05/25/19 History LORazepam [Ativan] 1 mg PO BID 06/05/17 05/25/19 History Metoprolol Tartrate [Lopressor] 100 mg PO BID 06/05/17 05/25/19 History Sertraline [Zoloft] 100 mg PO HS 06/05/17 05/25/19 History amLODIPine [Norvasc] 5 mg PO HS 06/05/17 05/25/19 History Ibuprofen [Advil] 400 mg PO Q8HR PRN 08/07/17 05/25/19 History Allergies Allergy/AdvReac Type Severity Reaction Status Date / Time Sulfa (Sulfonamide Allergy Rash/Hives Verified 05/25/19 09:15 Antibiotics) Physical Exam Vitals: Vital Signs Temp Pulse Pulse Resp BP BP Pulse Ox 05/25/19 08:00 98.1 F 74 18 128/71 99 05/25/19 05:09 98.2 F 74 18 131/69 97 05/25/19 04:36 98.6 F 82 18 164/63 95 05/25/19 02:39 98.3 F 84 18 169/83 97 Intake and Output 05/24/19 05/25/19 05/25/19 22:59 06:59 14:59 Other: Weight 67 kg Results CBC & Chem 7: 05/25/19 02:45 05/25/19 02:45 Labs: Abnormal Lab Results - Last 24 Hours (Table) 05/25/19 Range/Units 02:45 Glucose 113 H (74-99) mg/dL Thrombosis Risk Factor Assmnt - Choose All That Apply Any of the Below Risk Factors Present?: No Other Risk Factors: No Thrombosis Risk Factor Assessment Level: Very Low Risk
[2019-05-25] MEDS ORDERED: amLODIPine 5 MG TAB PO SCH (21:00)
[2019-05-25] MEDS ORDERED: SERTRALINE 100 MG TAB PO SCH (21:00)
[2019-05-25] MEDS ORDERED: ATORVASTATIN 80 MG TAB PO SCH (21:00)
[2019-05-25] MEDS: ACETAMINOPHEN TAB 325 MG TAB PO PRN (22:30)
[2019-05-25 23:08] LABS: Cholesterol 171 mg/dL (<200); HDL Cholesterol 76 mg/dL (40-60); LDL Cholesterol,Calculated 75 mg/dL (0-99); Triglycerides 99 mg/dL (<150)
[2019-05-26] MEDS ORDERED: AMINOPHYLLINE 500 MG/20 ML VIAL IV PRN (07:00)
[2019-05-26] MEDS ORDERED: DIPYRIDAMOLE IV ONE (07:00)
[2019-05-26] MEDS ORDERED: SODIUM CHLORIDE 0.9% IV ONE (07:00)
[2019-05-26] MEDS ORDERED: CAFFEINE CITRATE 60 MG/3 ML VIAL IV PRN (07:00)
[2019-05-26] MEDS ORDERED: ASPIRIN 81 MG PO SCH (09:00)
[2019-05-26] MEDS ORDERED: ASPIRIN 325 MG TAB PO SCH (09:00)
[2019-05-26] MEDS: ACETAMINOPHEN TAB 325 MG TAB PO PRN (09:41)
[2019-05-26] MEDS ORDERED: AMINOPHYLLINE 500 MG/20 ML VIAL IV ONE (11:20)
--- NOTE | 2019-05-26 11:38 | ECHOF ---
Referral Reason:LVF MEASUREMENTS -------- HEIGHT: 154.9 cm WEIGHT: 67.6 kg BP: 144/60 RVIDd: 2.7 cm (< 3.3) IVSd: 1.3 cm (0.6 - 1.1) LVIDd: 4.1 cm (3.9 - 5.3) LVPWd: 1.4 cm (0.6 - 1.1) IVSs: 1.6 cm LVIDs: 2.3 cm LVPWs: 1.7 cm LAESV Index (A-L): 21.97 ml/m Ao Diam: 3.4 cm (2.0 - 3.7) AV Cusp: 1.7 cm (1.5 - 2.6) MV EXCURSION: 15.792 mm (> 18.000) MV EF SLOPE: 55 mm/s (70 - 150) EPSS: 0.3 cm MV E Michael: 0.73 m/s MV DecT: 204 ms MV A Michael: 0.88 m/s MV E/A Ratio: 0.84 AV maxP.32 mmHg AV meanP.25 mmHg RAP: 5.00 mmHg RVSP: 14.96 mmHg FINDINGS -------- Sinus rhythm. This was a technically good study. The left ventricular size is normal. There is mild concentric left ventricular hypertrophy. There is normal global left ventricular contractility. Overall left ventricular systolic function is nor mal with, an EF between 60 - 65 %. The diastolic filling pattern is normal for the age of the patie nt 10.59. The right ventricle is normal in size. Normal LA size by volume 22+/-6 ml/m2. The right atrium was not well visualized. Interatrial and interventricular septum intact. The aortic valve was not well visualized. Trace amount of aortic regurgitation. There is no evid ence of aortic stenosis. Mild mitral regurgitation is present. Mild tricuspid regurgitation present. There is no evidence of pulmonary hypertension. The right v entricular systolic pressure, as measured by Doppler, is 14.96mmHg. There is no pulmonic regurgitation present. The aortic root size is normal. IVC Not well visulized. There is no pericardial effusion. CONCLUSIONS -------- 1. Sinus rhythm. 2. This was a technically good study. 3. The left ventricular size is normal. 4. There is normal global left ventricular contractility. 5. Overall left ventricular systolic function is normal with, an EF between 60 - 65 %. 6. The diastolic filling pattern is normal for the age of the patient 10.59 7. The right ventricle is normal in size. 8. Normal LA size by volume 22+/-6 ml/m2. 9. The right atrium was not well visualized. 10. Interatrial and interventricular septum intact. 11. The aortic valve was not well visualized. 12. Trace amount of aortic regurgitation. 13. There is no evidence of aortic stenosis. 14. Mild mitral regurgitation is present. 15. Mild tricuspid regurgitation present. 16. There is no evidence of pulmonary hypertension. 17. The right ventricular systolic pressure, as measured by Doppler, is 14.96mmHg. 18. There is no pulmonic regurgitation present. 19. The aortic root size is normal. 20. IVC Not well visulized. 21. There is no pericardial effusion. ESCALATOR OPERATOR: Lauryn Hall RDCS
--- NOTE | 2019-05-26 12:06 | P.PN ---
Subjective Progress Note Date: 05/26/19 This is a 69-year-old female with past medical history of hypertension, hyperlipidemia, anxiety and depression. She presented to the hospital with symptoms of chest discomfort. Seen in consultation by Dr. Trey Ruth. Patient was recommended today to undergo a Persantine Cardiolite stress test. At the time of our examination this morning, the patient denied any chest discomfort and her breathing was overall stable. Results of Persantine are yet pending. Echocardiogram with Doppler was performed which revealed a normal left ventricular systolic function. Objective - Vital Signs Vital signs: Vital Signs Temp 98.1 F 05/26/19 08:00 Pulse 67 05/26/19 08:00 Resp 16 05/26/19 08:00 BP 128/73 05/26/19 08:00 Pulse Ox 100 05/26/19 08:00 Intake & Output 05/25/19 05/26/19 05/26/19 18:59 06:59 18:59 Intake Total 460 Output Total 400 300 Balance 60 -300 Weight 67.9 kg Intake: Oral 460 Output: Urine 400 300 Other: Voiding Method Diaper # Voids 2 2 1 - Exam PHYSICAL EXAMINATION: GENERAL: 69-year-old female in no acute distress at the time of my examination HEENT: Head is atraumatic, normocephalic. Pupils equal, round. Sclera anicteric. Conjunctiva are clear. Mucous membranes of the mouth are moist. Neck is supple. There is no elevated jugular venous pressure. No Carotid bruit is heard. HEART EXAMINATION: Heart S1, S2 normal. No murmur or gallop heard. CHEST EXAMINATION: Lungs are clear to auscultation and precussion. No chest wall tenderness is noted on palpation or with deep breathing. ABDOMEN: Soft, nontender. Bowel sounds are heard. No organomegaly noted. EXTREMITIES: 2+ peripheral pulses with no evidence of peripheral edema and no calf tenderness noted. NEUROLOGIC [patient is awake, alert and oriented 3 . - Labs CBC & Chem 7: 05/25/19 02:45 05/25/19 02:45 Labs: Abnormal Lab Results - Last 24 Hours (Table) 05/25/19 Range/Units 08:27 HDL Cholesterol 76 H (40-60) mg/dL Assessment and Plan Plan: Assessment and plan #1 chest pain, atypical features for acute coronary syndrome. Troponins negative 3. #2 stress and anxiety #3 hypertension #4 hyperlipidemia Plan Echocardiogram with Doppler study revealed a normal left ventricular systolic function. We will review the patient's Persantine stress test. If it is negative, then from our perspective the patient may be able to be discharged home today. DNP note has been reviewed, I agree with a documented findings and plan of care. Patient was seen and examined.
[2019-05-26] MEDS: METOPROLOL TARTRATE 50 MG TAB PO SCH (12:24)
[2019-05-26] MEDS: ENOXAPARIN 40 MG/0.4 ML SYRINGE SQ SCH (12:24)
[2019-05-26] MEDS: LORazepam 1 MG TAB PO SCH (12:24)
--- NOTE | 2019-05-26 14:57 | NM ---
EXAMINATION TYPE: NM stress persantine cardiolite DATE OF EXAM: 05/26/2019 COMPARISON: NONE HISTORY: Chest pain TECHNIQUE: After the intravenous administration of 9.8 mCi Tc 99m Sestamibi - Cardiolite resting SPE CT images acquired 60 minutes post injection. The patient received 38 mg Persantine, 26.9 mCi Tc 99m Sestamibi - Stress images obtained 35 minutes post injection . Patient stressed with 38 mg of Persantine. 100 mg Aminophyllin was also utilized. FINDINGS: No fixed or reversible perfusion defects are evident. Gated wall motion appears normal. The ejection fraction is 88% IMPRESSION: 1. No suspicious fixed or reversible perfusion defects.
[2019-05-26 15:21] VITALS: BP 100/58; PULSE 71; RESP 18; TEMP 98.3
--- NOTE | 2019-05-26 18:56 | P.DS ---
Providers Date of admission: 05/25/19 04:09 Expected date of discharge: 05/26/19 Attending physician: Geremias Ravi Consults: 05/25/19 04:09 Consult Physician Urgent Consulting Provider: Kush Licona Consult Reason/Comments: cp Do you want consulting provider notified?: Yes Primary care physician: Og Mcclellan [facility] Course: Chief Complaint: Chest pain History of presenting complaint: This is a pleasant 69-year-old patient of Dr. Avina. Chronic stable medical conditions include hypertension, hyperlipidemia, varicose veins, scoliosis, anxiety depression. Patient presented with pain across the chest feeling a somebody's pushing a setting of the chest last from Brady hour. Did not radiate to neck or arm. The patient felt some tingling injured in both the arms and there was free shaking in the legs. Some shortness of breath some perspiration. Admitted with unstable angina. Troponin was negative. Cardiology was consulted. No prior cardiac history. Admitted with chest pain. Troponin 3 were negative. Today-no further chest pain today. Nuclear stress test was negative.. Encouraged to go home. Consultation: Dr. Licona from cardiology Physical examination: VITAL SIGNS: 98.3, 71, 18, 100/58, 96% on room air GENERAL: BMI 27.9, sitting up, comfortable. EYES: Pupils equal. Conjunctiva normal. HEENT: External appearance of nose and ears normal, oral cavity grossly normal. NECK: JVD not raised; masses not palpable. HEART: First and second heart sounds are normal; no edema. LUNGS: Respiratory rate normal; clear to auscultation. ABDOMEN: Soft, nontender, liver spleen not palpable, no masses palpable. PSYCH: Alert and oriented x3; mood and affect normal. INVESTIGATIONS, reviewed in the clinical context: White count 6.9 hemoglobin 12.3 platelets 288, potassium 4.1 creatinine 0.60 Troponin I 3 negative Coronavirus PCR-undetected EKG tracing personally reviewed by me-sinus rhythm with nonspecific ST segment changes Chest x-ray film personally reviewed by me-lung vergara clear LDL 75 Coronavirus PCR-not detected Persantine stress test no area of reversible perfusion defect Assessment: -Anterior chest wall pain. Possibly musculoskeletal. -Hyperlipidemia -Essential hypertension -Varicose -chronic scoliosis -Anxiety depression otherwise specified Disposition: Home Patient Condition at Discharge: Stable Plan - Discharge Summary Discharge Rx Participant: No New Discharge Prescriptions: New Aspirin 81 mg PO DAILY chew Continue Sertraline [Zoloft] 100 mg PO HS amLODIPine [Norvasc] 5 mg PO HS Metoprolol Tartrate [Lopressor] 100 mg PO BID LORazepam [Ativan] 1 mg PO BID Atorvastatin Calcium [Lipitor] 80 mg PO HS Ibuprofen [Advil] 400 mg PO Q8HR PRN PRN Reason: Pain Discharge Medication List Atorvastatin Calcium [Lipitor] 80 mg PO HS 06/05/17 [History] LORazepam [Ativan] 1 mg PO BID 06/05/17 [History] Metoprolol Tartrate [Lopressor] 100 mg PO BID 06/05/17 [History] Sertraline [Zoloft] 100 mg PO HS 06/05/17 [History] amLODIPine [Norvasc] 5 mg PO HS 06/05/17 [History] Ibuprofen [Advil] 400 mg PO Q8HR PRN 08/07/17 [History] Aspirin 81 mg PO DAILY chew 05/26/19 [Rx] Follow up Appointment(s)/Referral(s): Alexander Ruth MD [STAFF PHYSICIAN] - 1 Week (Office is currently closed. Please make follow up appointment. Tell cardiology staff that this is a hospital follow up, that you have no previous flask pusher and that Dr. Dami Ruth consulted on your case while you were in the hospital. ) Og Avina DO [Primary Care Provider] - 1-2 days (Office currently closed. Please call to make follow up appointment.) Patient Instructions/Handouts: Angina (DC), Cardiac Stress Test (DC) Discharge Disposition: HOME SELF-CARE
--- NOTE | 2019-05-27 11:20 | EST ---
EXERCISE STRESS AGE: 69 SEX: F HT: 61 inches WT: 149 lbs. PROTOCOL: Persantine Cardiolite STAGE: DURATION OF EXERCISE: HEART RATE REST: 61 BLOOD PRESSURE REST: 133/70 MAXIMUM HEART RATE ACHIEVED: 103 MAXIMUM BLOOD PRESSURE: 130/70 85% MPHR: 128 100% MPHR: 151 METS: @@ INDICATIONS: @@ CLINICAL INFORMATION: @@ CLINICAL INFORMATION: Baseline EKG shows sinus rhythm with nonspecific ST-T wave changes. Patient was given intravenous Lexiscan as per protocol. Did not have chest pain or diagnostic ST-segment depression. CONCLUSION: 1. Negative stress test by EKG criteria. 2. Cardiolite portion of the stress test will be reported separately. MMODL / IJN: [id number] /
== END 2019-05-26 18:29 | disposition home or self-care (01) ==
LOC: EC 02:25 → 3SCARD 04:09
PROVIDERS: ADMIT Hospitalist; ATTEND Hospitalist
DX: R07.89 Other chest pain (principal); R06.02 Shortness of breath; F41.1 Generalized anxiety disorder; R51 Headache; R11.0 Nausea; Z03.818 Encounter for observation for suspected exposure to other biological agents ruled out; I10 Essential (primary) hypertension; E78.5 Hyperlipidemia, unspecified; I83.90 Asymptomatic varicose veins of unspecified lower extremity; J02.9 Acute pharyngitis, unspecified; F43.9 Reaction to severe stress, unspecified; R05 Cough; R20.2 Paresthesia of skin; M41.9 Scoliosis, unspecified; Z79.1 Long term (current) use of non-steroidal anti-inflammatories (NSAID); Z79.82 Long term (current) use of aspirin; Z79.899 Other long term (current) drug therapy; Z88.2 Allergy status to sulfonamides; Z86.010 Personal history of colon polyps; Z90.710 Acquired absence of both cervix and uterus; Z98.891 History of uterine scar from previous surgery; Z86.018 Personal history of other benign neoplasm; Z91.81 History of falling; Z80.3 Family history of malignant neoplasm of breast
CPT/HCPCS: 96372 ×2; 93005 ×3; 99285; 36415; 93017; 93306; 83880; 80061; 80053; 82728; 83615; 83735; 84100; 84484; 85025; 85610; 85730; 86140; 84145; 87635; 71046; 78452; G0378 ×2; A9500; J0280; J1650 ×2; J1245

== ENCOUNTER → 2019-07-11 | Outpatient (CLI) | payer BC ==
--- NOTE | 2019-07-11 14:19 | MR ---
EXAMINATION TYPE: MR thoracic spine wo/w con DATE OF EXAM: 07/11/2019 COMPARISON: 04/19/2019 HISTORY: Myelopathy falling, Abnormal MRI (indeterminate 1.0 cm T11 vertebral body lesion) CONTRAST: Standard multiplanar, multisequence MRI departmental protocol utilizing 7 mL intravenous Gadavist darvin olinium contrast. FINDINGS: There is an approximately 1.0 cm T2/T1 hypointense vertebral body lesion at the left latera l margin of the posterior T11 vertebral body that does demonstrate enhancement and therefore is suspi cious for metastasis. Slight heterogeneity of the bone marrow signal of the anterior vertebral henrique s on T2 sagittal image 8 with multifocal rounded areas of hypointensity. For example an area at T9 is marked on T1 nonfat sat sagittal image 7. The vertebral body heights and alignment of the thoracic spine are maintained. There is a broad-based disc bulge at T2-T3 there is stable from the prior. No spinal canal stenosis. Multilevel disc desicc ation again seen. Very small disc herniation at T6-T7 is redemonstrated without spinal canal stenosis or significant neural foraminal narrowing. No significant neural foraminal narrowing at any thoracic vertebral level seen. Mild epidural lipomatosis. IMPRESSION: 1. Enhancement of the T11 1.0 cm vertebral body. Therefore, this lesion is concerning for neoplasm. T his could be correlated with bone scan. 2. Stable very small disc herniation at T6-T7 and disc bulge at T2-T3.
== END | disposition home or self-care (01) ==
LOC: RADMRIMAIN 12:17
PROVIDERS: ATTEND Psychiatry & Neurology Neurology
DX: M51.24 Other intervertebral disc displacement, thoracic region (principal); G95.89 Other specified diseases of spinal cord
CPT/HCPCS: 72157; A9585

== ENCOUNTER → 2019-07-25 | Outpatient (CLI) | payer BC ==
--- NOTE | 2019-07-25 14:46 | NM ---
EXAMINATION TYPE: NM bone scan whole body DATE OF EXAM: 07/25/2019 COMPARISON: Lumbar MRI dated 03/29/2011 MR thoracic spine 07/11/2019 HISTORY: Low back pain, M 89.9, disorder of bone Delayed whole-body scanning was performed following the injection of 22.7 mCi Tc 99m MDP. Images acq uired 3 hours post injection. FINDINGS: Focus of increased rate pharmaceutical uptake is present along the anterior right fifth rib, correlat e for history of trauma. Uptake within the feet, knees, wrists, shoulders is likely degenerative. Upt avelino at the lumbosacral junction is likely due to degenerative disc disease and spinal listhesis, spon dylolysis at L5 bilaterally. Soft tissue uptake is normal. Uptake along the costovertebral angle leve ls in the upper thoracic spine and within the Dory elements of the cervical spine likely due to ost eoarthritic change. IMPRESSION: Correlate for history of trauma at the anterior right fifth rib. Degenerative disc disease, osteoarth ritis. Additional findings above.
== END | disposition home or self-care (01) ==
LOC: RADNMMAIN 10:20
PROVIDERS: ATTEND Psychiatry & Neurology Neurology
DX: M51.37 Other intervertebral disc degeneration, lumbosacral region (principal); M19.90 Unspecified osteoarthritis, unspecified site; R93.7 Abnormal findings on diagnostic imaging of other parts of musculoskeletal system
CPT/HCPCS: 78306; A9503

== ENCOUNTER → 2020-02-20 | Outpatient (CLI) | payer MEDICARE, BC ==
--- NOTE | 2020-02-20 13:14 | CT ---
EXAMINATION TYPE: CT abdomen pelvis w con DATE OF EXAM: 02/20/2020 HISTORY: Abnormal weight loss CT DLP: 934mGycm Automated Exposure Control for Dose Reduction was Utilized. CONTRAST: CT scan of the abdomen and pelvis is performed with IV Contrast, patient injected with 100 mL of Isov ue 300. COMPARISON: None. FINDINGS: LUNG BASES: No significant abnormality is appreciated. LIVER/GB: No significant abnormality is appreciated. PANCREAS: No significant abnormality is seen. SPLEEN: No significant abnormality is seen. ADRENALS: No significant abnormality is seen. KIDNEYS: Irregular 9 mm calculus upper pole right kidney coronal image 56. Symmetric cortical medulla ry uptake and excretion without hydronephrosis seen bilaterally. Subcentimeter low dense lesion media lly lower pole left kidney series 7 image 43 too small to further characterize presumed benign. BOWEL: Oral contrast reaches level of right colon making evaluation of distal bowel slightly suboptim al. No suspicious small or large bowel dilatation. Mild wall thickening in the transverse colon. UTERUS/ADNEXA: Uterus surgically absent or markedly atrophic. LYMPH NODES: No greater than 1cm abdominal or pelvic lymph nodes are appreciated. OSSEOUS STRUCTURES: Underlying S-shaped scoliosis. Bilateral pars defect L5 level with grade 2 spondy lolisthesis or anterolisthesis L5 on S1. Advanced disc space narrowing. OTHER: Mild to moderate peripheral plaque in the abdominal aorta extends into branch vessels. IMPRESSION: No suspicious mass or adenopathy noted. Cannot exclude a mild uncomplicated acute colitis in the transverse colon versus product of poor distention. Nonobstructing upper pole right renal ravindra culus. Prominent spondylolisthesis and advanced degenerative change lumbosacral junction.
== END | disposition home or self-care (01) ==
LOC: RADCTMAIN 10:59
PROVIDERS: ATTEND Family Medicine
DX: N20.0 Calculus of kidney (principal); Z88.2 Allergy status to sulfonamides
CPT/HCPCS: 74177; Q9967

== ENCOUNTER → 2020-03-29 | Outpatient (CLI) | payer MEDICARE, BC | END | disposition home or self-care (01) | LOC: LABWHC1 15:20 | PROVIDERS: ATTEND Psychiatry & Neurology Neurology | DX: E53.9 Vitamin B deficiency, unspecified (principal) | CPT/HCPCS: 36415; 82607 ==

== ENCOUNTER → 2020-06-29 | Outpatient (CLI) | payer MEDICARE, BC ==
--- NOTE | 2020-06-30 14:42 | MM ---
Reason for exam: screening (asymptomatic). Last mammogram was performed 2 years and 4 months ago. History: Family history of breast cancer in mother at age 54. Physical Findings: A clinical breast exam by your physician is recommended on an annual basis and results should be correlated with mammographic findings. MG 3D Screening Mammo W/Cad Bilateral CC and MLO view(s) were taken. Prior study comparison: February 20, 2018, mammogram. The breast tissue is heterogeneously dense. This may lower the sensitivity of mammography. Increased overall density suggestive of weight loss. ASSESSMENT: Benign, BI-RAD 2 RECOMMENDATION: Routine screening mammogram of both breasts in 1 year.
== END | disposition home or self-care (01) ==
LOC: RADMAMWWP 14:22
PROVIDERS: ATTEND Family Medicine
DX: Z12.31 Encounter for screening mammogram for malignant neoplasm of breast (principal); Z80.3 Family history of malignant neoplasm of breast
CPT/HCPCS: 77063; 77067

== ENCOUNTER 2020-07-02 07:53 | Day surgery (SDC) | payer MEDICARE, BC ==
[2020-06-30 10:41] VITALS: BMI 21.9
[~2020-07-02 07:53] MED LIST changes: -DEXAMETHASONE SOD PHOSPHATE 10 MG/ML 1 ML VIAL IV ONE; -LACTATED RINGERS 1,000 ML IV SCH; +LIDOCAINE 1% (10MG/ML) FOR IV START INTRADERMA PRN; -LIDOCAINE 1% 20 ML VIAL (10MG/ML) FOR IV START INTRADERMA PRN; -MIDAZOLAM 2 MG/2 ML VIAL IV PRN; -ONDANSETRON 4 MG/2 ML VIAL IVP ONE; -SCOPOLAMINE 1.5MG/72HR PATCH TRANSDERM ONE; -ceFAZolin IN SWFI 2 GM/20 ML SYRINGE IVP ONE
[2020-07-02] MEDS: LACTATED RINGERS 1,000 ML IV SCH ×2 (08:07→08:15)
[2020-07-02 08:22] VITALS: RESP 16; TEMP 97.8
[2020-07-02] MEDS ORDERED: PROPOFOL 10 MG/ML 20 ML VIAL IV ONE (09:08)
[2020-07-02] MEDS ORDERED: MIDAZOLAM 2 MG/2 ML VIAL ONE (09:08)
[2020-07-02] MEDS ORDERED: IV FLUID CONTINUATION 1,000 ML IV ONE (09:27)
--- NOTE | 2020-07-02 09:28 | P.PCN ---
Date of Procedure: 07/02/20 Procedure(s) Performed: BRIEF HISTORY: Patient is a 70-year-old pleasant white female scheduled for an elective colonoscopy as a part of evaluation of prior history of colon polyps. Last colonoscopy was 3 years ago. PROCEDURE PERFORMED: Colonoscopy snare polypectomy. PREOPERATIVE DIAGNOSIS: History of colon polyps. IV sedation per Anesthesia. PROCEDURE: After informed consent was obtained, the patient, was brought into the endoscopy unit. IV sedation was administered by Anesthesia under continuous monitoring. Digital rectal examination was normal. Initially the Olympus CF-160 flexible video colonoscope was then inserted in the rectum, gradually advanced into the cecum without any difficulty. Careful examination was performed as the scope was gradually being withdrawn. Ileocecal valve and the appendiceal orifice were visualized and appeared normal. Prep was excellent. There was a 5 mm polyp noted in the cecum that was removed by snare polypectomy. Mucosa of the cecum, ascending colon, transverse colon, descending colon, sigmoid colon, and rectum appeared normal. Retroflexion was performed in the rectum and no lesions were seen. The patient tolerated the procedure well. IMPRESSION: 5 mm cecal polyp status post polypectomy Rest of the colon appeared normal RECOMMENDATIONS: Findings of this examination were discussed with the patient well as her family. She was advised to follow with the biopsy results. If the biopsy shows an adenoma she can have a repeat colonoscopy in 5 years.
[2020-07-02 09:43] VITALS: BP 133/77; PULSE 70
== END 2020-07-02 10:24 | disposition home or self-care (01) ==
LOC: ORWHC2ENDO 07:53
PROVIDERS: ATTEND Internal Medicine Gastroenterology
DX: Z12.11 Encounter for screening for malignant neoplasm of colon (principal); D12.0 Benign neoplasm of cecum; Z79.899 Other long term (current) drug therapy; I10 Essential (primary) hypertension; E78.5 Hyperlipidemia, unspecified; Z88.2 Allergy status to sulfonamides
CPT/HCPCS: 88305; 45385; J2250; J2704

== ENCOUNTER 2020-09-25 13:26 | Emergency (ER) | payer MEDICARE, BC ==
[2020-09-25 13:51] VITALS: BP 171/79; PULSE 67; RESP 18; TEMP 98.5
--- NOTE | 2020-09-25 14:13 | ED ---
General Adult HPI - General Chief complaint: Eye Problems Stated complaint: Lightheaded/Eye Problems Time Seen by Provider: 09/25/20 13:55 Source: patient, family, RN notes reviewed, old records reviewed Mode of arrival: ambulatory Limitations: no limitations - History of Present Illness Initial comments: 70-year-old white female, presents to the emergency room with her significant other complaining of left eye flashes of light and black spots around 11:00 when she was doing a puzzle. Patient states that she seen flashes of light and then black spots lasting about an hour and then resolved. She came to the emergency room and states that she has had complaints of the black dots while waiting. She denies any eye pain or pain with movement of the eye. She states she has a slight frontal headache. states that she had an acoustic neuroma surgery several years ago and she has a left-sided facial droop which is baseline for her. She has no new focal neurological deficits. -: hour(s) (3) Location: eyes (left eye vision change, black dots and flashes) Consistency: now resolved Associated Symptoms: headaches (Mild frontal headache) - Related Data Home Medications Medication Instructions Recorded Confirmed Atorvastatin Calcium [Lipitor] 80 mg PO HS 06/05/17 07/02/20 LORazepam [Ativan] 1 mg PO BID 06/05/17 07/02/20 Baclofen 10 mg PO HS 06/30/20 07/02/20 Metoprolol Succinate [Toprol XL] 25 mg PO HS 06/30/20 07/02/20 Sertraline [Zoloft] 50 mg PO HS 06/30/20 07/02/20 Allergies Allergy/AdvReac Type Severity Reaction Status Date / Time Sulfa (Sulfonamide Allergy Rash/Hives Verified 07/02/20 08:12 Antibiotics) Review of Systems ROS Statement: Those systems with pertinent positive or pertinent negative responses have been documented in the HPI. ROS Other: All systems not noted in ROS Statement are negative. Past Medical History Past Medical History: Hyperlipidemia, Hypertension Additional Past Medical History / Comment(s): VARICOSE VEINS, STATES BM ONCE A WEEK AND PAINFUL SINCE COLONOSCOPY WITH POLYP REMOVAL 06/08/17., SCOLIOSIS, FELL ON STAIRS AND INJURED LEFT ANKLE-HAS SPLINT ON., BRUISES ON ARMS AND SCRAPED RIGHT SMITH ALSO., Acustic neuroma removed History of Any Multi-Drug Resistant Organisms: None Reported Past Surgical History: Section, Hysterectomy Additional Past Surgical History / Comment(s): ACOUSTIC NEUROMA REMOVED FROM LT EAR. COLONOSCOPY Past Anesthesia/Blood Transfusion Reactions: No Reported Reaction Past Psychological History: Anxiety, Depression Past Alcohol Use History: None Reported Past Drug Use History: None Reported - Past Family History Mother Family Medical History: Cancer Additional Family Medical History / Comment(s): BREAST CANCER General Exam Limitations: no limitations General appearance: alert, in no apparent distress Head exam: Present: atraumatic, normocephalic, normal inspection Eye exam: Present: normal appearance, PERRL, EOMI. Absent: scleral icterus, conjunctival injection, nystagmus, periorbital swelling Pupils: Present: normal accommodation ENT exam: Present: normal exam, normal oropharynx, mucous membranes moist Neck exam: Present: normal inspection, full ROM. Absent: tenderness, meningismus, lymphadenopathy, thyromegaly Respiratory exam: Present: normal lung sounds bilaterally. Absent: respiratory distress, wheezes, rales, rhonchi, stridor Cardiovascular Exam: Present: regular rate, normal rhythm, normal heart sounds. Absent: systolic murmur, diastolic murmur, rubs, gallop, clicks Extremities exam: Present: normal inspection, full ROM, normal capillary refill. Absent: tenderness, pedal edema, joint swelling, calf tenderness Back exam: Present: normal inspection, full ROM. Absent: tenderness, CVA tenderness (R), CVA tenderness (L), muscle spasm, paraspinal tenderness, vertebral tenderness Expanded Back exam: Absent: saddle anesthesia Back exam: Negative Straight Leg Raising: Left, Right Neurological exam: Present: alert, oriented X3, CN II-XII intact, other (History of acoustic neuroma surgery some left-sided facial weakness and drooping residual) Psychiatric exam: Present: normal affect, normal mood Skin exam: Present: warm, dry, intact, normal color. Absent: rash Course Vital Signs 09/25/20 13:45 Temperature 98.5 F Pulse Rate 67 Respiratory 18 Rate Blood Pressure 171/79 O2 Sat by Pulse 100 Oximetry Procedures - Procedures Initial comment: Sherman-Pen measurements show the left eye at 14, 12 and 11; right eye at 13, 14 and 11 Medical Decision Making - Medical Decision Making CT brain shows no intracranial abnormality. There is no intracranial hemorrhage or mass or midline shift. Dr. Mullen at bedside ultrasound of the left eye. There is some debris which may represent mild vitreous hemorrhage. The anterior chamber is clear. Visual acuity is 20/40 bilaterally, 20/40 in the right and 20/50 in the left. Spoke with Dr. Nunez who recommends f/u in the office as outpatient and return to ER if total loss of vision, severe hazy vision or dropping curtain visual loss. Patient and family are agreeable to this plan of care. Disposition Clinical Impression: Changes in vision Disposition: HOME SELF-CARE Condition: Good Instructions (If sedation given, give patient instructions): Visual Floaters (ED) Additional Instructions: Return to the emergency room with any worsening or new symptoms including severe headache loss of vision, pain, or a black curtain appearance to the visual field. Follow-up with ophthalmology on Sunday morning. Is patient prescribed a controlled substance at d/c from ED?: No Referrals: Og Avina DO [Primary Care Provider] - 1-2 days Toma Nunez MD [STAFF PHYSICIAN] - 1-2 days Time of Disposition: 15:23
[2020-09-25] MEDS ORDERED: ACETAMINOPHEN TAB 325 MG TAB PO STA (14:24)
--- NOTE | 2020-09-25 15:00 | CT ---
EXAM: CT brain wo con CLINICAL HISTORY: Vision changes. COMPARISON: None TECHNIQUE: Contiguous axial noncontrast images of the brain were obtained. Coronal and sagittal refor mats were generated and reviewed. Automated dose control was used for this exam. FINDINGS: There is no evidence for intracranial hemorrhage, mass effect or midline shift. The white matter is g rossly preserved. Ventricular size and configuration is within normal limits for degree of parenchymal volume. The paranasal sinuses are clear. The mastoid air cells are clear. No evidence for calvarial fracture. Dysplastic left mastoid air cells with osseous remodeling, may re late to prior post surgical changes IMPRESSION: No acute intracranial abnormality. Chronic changes of left mastoid air cells.
== END 2020-09-25 15:39 | disposition home or self-care (01) ==
LOC: EC 13:26
DX: H53.9 Unspecified visual disturbance (principal); R42 Dizziness and giddiness; R51.9 Headache, unspecified; I10 Essential (primary) hypertension; E78.5 Hyperlipidemia, unspecified; M41.9 Scoliosis, unspecified; F32.9 Major depressive disorder, single episode, unspecified; F41.9 Anxiety disorder, unspecified; Z86.018 Personal history of other benign neoplasm; Z88.2 Allergy status to sulfonamides
CPT/HCPCS: 70450; 99284

== ENCOUNTER → 2021-08-25 | Outpatient (CLI) | payer MEDICARE, BC ==
--- NOTE | 2021-08-26 08:58 | MM ---
Reason for Exam: Screening (asymptomatic). Last mammogram was performed 1 year(s) and 2 month(s) ago. Patient History: Menarche at age 13. First Full-Term at age 30. Late child-bearing (after 30). Mother had breast cancer, age 54. Risk Values: Keila 5 year model risk: 3.5%. NCI Lifetime model risk: 9.5%. Prior Study Comparison: 02/20/2018 Screening Mammogram, Unknown. 06/29/2020 Bilateral Screening Mammogram, [facility]. Tissue Density: The breast tissue is heterogeneously dense. This may lower the sensitivity of mammography. Findings: Analyzed By CAD. There is no suspicious group of microcalcifications or new suspicious mass in either breast. Scattered benign-appearing calcifications bilaterally. No significant change from prior examination. Overall Assessment: Benign, BI-RAD 2 Management: Screening Mammogram of both breasts in 1 year. A clinical breast exam by your physician is recommended on an annual basis and results should be correlated with mammographic findings. Electronically signed and approved by: German Chavez D.O.
== END | disposition home or self-care (01) ==
LOC: RADMAMWWP 13:35
PROVIDERS: ATTEND Family Medicine
DX: Z12.31 Encounter for screening mammogram for malignant neoplasm of breast (principal); Z80.3 Family history of malignant neoplasm of breast
CPT/HCPCS: 77063; 77067

== ENCOUNTER → 2021-12-28 | Outpatient (CLI) | payer MEDICARE, BC ==
--- NOTE | 2021-12-28 13:02 | MR ---
EXAMINATION TYPE: MR brain wo con DATE OF EXAM: 12/28/2021 11:56 AM COMPARISON: 03/14/2019 HISTORY: Amnesia, acoustic neuroma removed FINDINGS: The ventricles, basal cisterns and sulci overlying the cerebral convexities are mildly enlarged. There is evidence of mild periventricular white matter ischemic demyelination. Remote deep white matter insults are also noted. No acute edema is seen on diffusion weighted imaging. There is no evidence for midline shift or mass effect. Acute intracranial hemorrhage or extra-axial collection is not evident. The paranasal sinuses are well-aerated. Postoperative changes about the left internal auditory canal. IMPRESSION: Age-related atrophic and chronic small vessel ischemic change. No acute intracranial process at this time.
== END | disposition home or self-care (01) ==
LOC: RADMRIMAIN 11:04
PROVIDERS: ATTEND Family Medicine
DX: G31.1 Senile degeneration of brain, not elsewhere classified (principal); I67.82 Cerebral ischemia; R41.3 Other amnesia
CPT/HCPCS: 70551

== ENCOUNTER → 2022-02-08 | Outpatient (CLI) | payer MEDICARE, BC ==
--- NOTE | 2022-02-08 16:54 | BD ---
EXAMINATION TYPE: Axial Bone Density DATE OF EXAM: 02/08/2022 COMPARISON: FIRST DEXA AT [facility] CLINICAL HISTORY: 71 years year old Female. ICD-10 CODE: Z13.820 SCREENING FOR OSTEOPOROSIS Height: 61IN Weight: 127LB FRAX RISK QUESTIONS: Secondary Osteoporosis: 3. Menopause before 45: UNSURE RISK FACTORS HISTORY OF: Active: NOT REALLY Postmenopausal woman: YES Take estrogen and/or progesterone medications: UNSURE How long: Poor Health: FAIR MEDICATIONS: Additional Medications: PT UNSURE ABOUT ANY MEDS Additional History: EXAM MEASUREMENTS: Bone mineral densitometry was performed using the [employer] System. Bone mineral density as measured about the Lumbar spine is: ----- L1-L4(G/cm2): 1.102 T Score Values are as follows: ----- L1: -1.6 ----- L2: -1.4 ----- L3: -1.3 ----- L4: 1.7 ----- L1-L4: -0.6 FIRST DEXA AT [facility] Bone mineral density about the R hip (g/cm2): 0.954 Bone mineral density about the L hip (g/cm2): 0.920 T Score values are as follows: -----R Neck: -0.7 -----L Neck: -0.6 -----R Total: -0.4 -----L Total: -0.7 FRAX%s: The graph provided illustrates a 8.3% chance for a major osteoporotic fx and a 0.8% chance fo r the hips probability for fx in 10 years time. IMPRESSION: Normal (Values between +1 and -1 indicate normal bone mass). Consider repeating this study in 5 year s or sooner if there is some new clinical indication. NOTE: T-SCORE=SD OF THE YOUNG ADULT MEAN.
== END | disposition home or self-care (01) ==
LOC: RADBDWWP 14:07
PROVIDERS: ATTEND Family Medicine
DX: Z13.820 Encounter for screening for osteoporosis (principal); Z78.0 Asymptomatic menopausal state
CPT/HCPCS: 77080

== ENCOUNTER → 2023-04-12 | Outpatient (CLI) | payer MEDICARE, BC ==
--- NOTE | 2023-04-13 08:50 | MM ---
Reason for Exam: Screening (asymptomatic). Last mammogram was performed 1 year(s) and 8 month(s) ago. Patient History: Menarche at age 13. First Full-Term at age 30. Late child-bearing (after 30). Postmenopausal. Patient has history of breast feeding. Mother had breast cancer, age 54. Risk Values: Keila 5 year model risk: 3.5%. NCI Lifetime model risk: 9.1%. Prior Study Comparison: 02/20/2018 Screening Mammogram, Unknown. 06/29/2020 Bilateral Screening Mammogram, [facility]. 08/25/2021 Bilateral MG 3D screening mammo w/cad, [facility]. Tissue Density: The breasts are heterogeneously dense, which may obscure small masses. Findings: Analyzed By CAD. There is no suspicious group of microcalcifications or new suspicious mass in either breast. Overall Assessment: Benign, BI-RAD 2 Management: Screening Mammogram of both breasts in 1 year. . Patient should continue monthly self-breast exams. A clinical breast exam by your physician is recommended on an annual basis. This exam should not preclude additional follow-up of suspicious palpable abnormalities. Note on Keila scores and lifetime risk: 1. A Keila score greater than 3% is considered moderate risk. If this is the case, consider specialist referral to assess eligibility for a risk reducing agent. 2. If overall lifetime risk for the development of breast cancer is 20% or higher, the patient may qualify for future screening with alternating mammogram and breast MRI. Electronically signed and approved by: Bryan Fernandez M.D. Radiologis
== END | disposition home or self-care (01) ==
LOC: RADMAMWWP 10:55
PROVIDERS: ATTEND Internal Medicine
DX: Z12.31 Encounter for screening mammogram for malignant neoplasm of breast (principal); Z80.3 Family history of malignant neoplasm of breast; Z78.0 Asymptomatic menopausal state
CPT/HCPCS: 77063; 77067

== ENCOUNTER → 2023-05-10 | Outpatient (CLI) | payer MEDICARE, BC ==
--- NOTE | 2023-05-10 16:33 | MR ---
EXAMINATION TYPE: MR shoulder RT wo con DATE OF EXAM: 05/10/2023 COMPARISON: None HISTORY: Right shoulder tightness, bruised pain feeling x2 weeks, Has fallen TECHNIQUE: Multiplanar, multisequence imaging of the right shoulder is performed without contrast. FINDINGS: There is no bone contusion or fracture. There is moderate osteoarthritic change at the AC joint. There is marked superior subluxation of the glenohumeral joint secondary to complete chronic rotator cuff tears of the supraspinatus and infraspi natus tendons with muscle atrophy and retraction of the musculotendinous junctions. There is a mild glenohumeral joint effusion with fluid in the biceps tendon sheath. The biceps tendon is located within the bicipital groove and the biceps anchor is intact. The superior cartilaginous l abrum is intact. There is absence of the anterior cartilaginous labrum consistent with a chronic tear. There is thicke dena of the anterior joint capsule. Subscapularis tendon is intact. IMPRESSION: 1. 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 2. Marked superior subluxation of the glenohumeral joint secondary to chronic rotator cuff tears. Sma ll glenohumeral joint effusion. 3. Tear of the anterior cartilaginous labrum and thickening of the anterior joint capsule. The subsca pularis tendon is intact. 4. No bone contusion or fracture. 5. Moderate osteoarthritic change of the AC joint.
== END | disposition home or self-care (01) ==
LOC: RADMRIMAIN 11:08
PROVIDERS: ATTEND Orthopaedic Surgery
DX: M19.011 Primary osteoarthritis, right shoulder (principal); M75.121 Complete rotator cuff tear or rupture of right shoulder, not specified as traumatic; M25.411 Effusion, right shoulder; M67.813 Other specified disorders of tendon, right shoulder; M24.811 Other specific joint derangements of right shoulder, not elsewhere classified

== ENCOUNTER → 2024-05-30 | Outpatient (CLI) | payer MEDICARE, BC ==
--- NOTE | 2024-05-30 14:28 | MM ---
Reason for Exam: Screening (asymptomatic). Last mammogram was performed 1 year(s) and 1 month(s) ago. Patient History: Menarche at age 13. First Full-Term at age 30. Late child-bearing (after 30). Postmenopausal. Patient has history of breast feeding. Mother had breast cancer, age 54. Risk Values: Keila 5 year model risk: 3.6%. NCI Lifetime model risk: 8.1%. Prior Study Comparison: 06/29/2020 Bilateral Screening Mammogram, [facility]. 08/25/2021 Bilateral MG 3D screening mammo w/cad, [facility]. 04/12/2023 Bilateral MG 3D screening mammo w/cad, [facility]. Tissue Density: The breasts are heterogeneously dense, which may obscure small masses. Findings: Analyzed By CAD. There is no suspicious group of microcalcifications or new suspicious mass in either breast. Overall Assessment: Benign, BI-RAD 2 Management: Screening Mammogram of both breasts in 1 year. . Patient should continue monthly self-breast exams. A clinical breast exam by your physician is recommended on an annual basis. This exam should not preclude additional follow-up of suspicious palpable abnormalities. Note on Keila scores and lifetime risk: 1. A Keila score greater than 3% is considered moderate risk. If this is the case, consider specialist referral to assess eligibility for a risk reducing agent. 2. If overall lifetime risk for the development of breast cancer is 20% or higher, the patient may qualify for future screening with alternating mammogram and breast MRI. [facility], , 05/30/2024 2:26 PM. Electronically signed and approved by: Bryan Fernandez M.D. Radiologis
--- NOTE | 2024-05-30 14:50 | XR ---
EXAMINATION TYPE: XR shoulder complete RT DATE OF EXAM: 05/30/2024 2:36 PM COMPARISON: 01/13/2010 CLINICAL INDICATION: Female, 74 years old with history of [id number] CHRONIC RIGHT SHOULDER PAIN, Pain TECHNIQUE: XR shoulder complete RT view(s) obtained. FINDINGS: There is some elevation of the humeral head in relation to the glenoid. The acromiohumeral joint spac e is narrowed. Correlate for chronic rotator cuff tear. : No clavicular junction is some degenerative change. No depression of the acromion in relation to th e clavicle is evident. No acute fractures or dislocations are evident. A follow up study can be performed 7-10 days from acute trauma for continued pain. MRI can be perfor med if soft tissue evaluation would be of benefit. IMPRESSION: 1. Chronic rotator cuff tear right shoulder [facility], Workstation: [facility], 05/30/2024 2:48 PM
[2024-05-30 18:42] LABS: Basophils # (A) 0.04 X 10*3/uL (0.00-0.10); Basophils % (A) 0.6 %; Eosinophils # (A) 0.09 X 10*3/uL (0.04-0.35); Eosinophils % (A) 1.2 %; HCT 38.3 % (37.2-46.3); HGB 12.1 g/dL (12.0-15.0); Lymphocytes # (A) 2.65 X 10*3/uL (0.90-5.00); Lymphocytes % (A) 36.5 %; MCH 30.7 pg (27.0-32.0); MCHC 31.6 g/dL (32.0-37.0); MCV 97.2 FL (80.0-97.0); Monocytes # (A) 0.47 X 10*3/uL (0.20-1.00); Monocytes % (A) 6.5 %; NRBC Per 100 WBC 0 X 10*3/uL (0.00-0.01); Neutrophils % (A) 54.9 %; Platelet Count 264 X 10*3/uL (140-440); RBC 3.94 X 10*6/uL (4.10-5.20); RDW 12.8 % (11.5-14.5); WBC 7.27 X 10*3/uL (4.50-10.00)
[2024-05-30 19:07] LABS: ALT 35 U/L (8-44); AST 34 U/L (13-35); Albumin 4.4 g/dL (3.8-4.9); Alkaline Phosphatase 71 U/L (41-126); BUN/Creat Ratio 10.88 Ratio (12.00-20.00); Blood Urea Nitrogen 8.7 mg/dL (9.0-27.0); Calcium 9.7 mg/dL (8.7-10.3); Carbon Dioxide 27.3 mmol/L (21.6-31.8); Chloride 102 mmol/L (96-109); Chol/HDL Ratio 1.91 Ratio; Globulin 2.2 g/dL (1.6-3.3); Glucose 106 mg/dL (70-110); LDL Cholesterol,Calculated 65.1 mg/dL (0.0-131.0); Potassium 4.4 mmol/L (3.5-5.5); Sodium 141 mmol/L (135-145); Total Bilirubin 0.8 mg/dL (0.3-1.2); Total Protein 6.6 g/dL (6.2-8.2); VLDL Calculation 15.78 mg/dL (5.00-40.00)
== END | disposition home or self-care (01) ==
LOC: RADMAMWWP 13:46
PROVIDERS: ATTEND Internal Medicine
DX: Z12.31 Encounter for screening mammogram for malignant neoplasm of breast (principal); Z00.00 Encounter for general adult medical examination without abnormal findings; M75.111 Incomplete rotator cuff tear or rupture of right shoulder, not specified as traumatic; R92.333 Mammographic heterogeneous density, bilateral breasts; Z78.0 Asymptomatic menopausal state; Z80.3 Family history of malignant neoplasm of breast
CPT/HCPCS: 77063; 77067; 80053; 80061; 84443; 85025